=== PATIENT | female | born 1990 | race Caucasian/White ===

== ENCOUNTER 2023-11-01 16:38 | Emergency (ER) | payer MEDICAID ==
[~2023-11-01] VITALS: Ht 157.5 cm; Wt 72.6 kg
[2023-11-01 17:15] VITALS: BP 98/54; PULSE 97; RESP 18; TEMP 98; O2SAT 98
[2023-11-01 20:29] LABS: APPEARANCE,URINE CLOUDY (CLEAR); BILIRUBIN,URINE NEGATIVE (NEGATIVE); BLOOD, URINE 3+ (NEGATIVE); COLOR,URINE AMBER (YELLOW); LEUKOCYTE ESTERASE ,URINE 3+ (NEGATIVE); NITRITE, URINE POSITIVE (NEGATIVE); PH,URINE 6.5 (5.0-9.0); PROTEIN,URINE 2+ (NEGATIVE); UGLUCOSE NEGATIVE (NEGATIVE)
[2023-11-01 20:44] LABS: BACTERIA,URINE 10-30 (MOD) /HPF (None Seen); RBC,URINE 11-20 (MOD) /HPF (0-5); SQUAMOUS EPITHELIAL CELL,UR 0-3 (FEW) /LPF (0-3 (FEW))
[2023-11-01 20:54] LABS: FLU A ANTIGEN POSITIVE (NEGATIVE); FLU B ANTIGEN NEGATIVE (NEGATIVE)
[2023-11-01] MEDS ORDERED: ACET-9882 PO (21:54)
[2023-11-01] MEDS ORDERED: PROM118S5 PO (21:54)
[2023-11-01] MEDS ORDERED: CEPH-588 PO (21:54)
[2023-11-01] MEDS ORDERED: PYR100 PO (21:54)
== END 2023-11-01 22:03 | disposition home or self-care (01) ==
LOC: MED 16:38
DX: J10.1 Influenza due to other identified influenza virus with other respiratory manifestations (principal); N39.0 Urinary tract infection, site not specified; R55 Syncope and collapse; Z20.822 Contact with and (suspected) exposure to COVID-19; Z79.899 Other long term (current) drug therapy; Z79.2 Long term (current) use of antibiotics
CPT/HCPCS: 71045; 81001; 81025; 87086; 93005; 99285